=== PATIENT | male | born 1965 | race African-American/Black ===

== ENCOUNTER 2023-04-28 11:29 | Emergency (ER) | payer MEDICAID, SELFPAY ==
[2023-04-28 11:35] VITALS: BP 175/96; PULSE 64; RESP 16; TEMP 37; O2SAT 98; BMI 21.4
--- NOTE | 2023-04-28 13:57 | ED_ITS ---
HPI - Dental/Oral 2 General: Chief complaint: Dental/Oral Stated complaint: tooth and jaw pain Time Seen by Provider: 04/28/23 11:35 Source: patient Mode of arrival: ambulatory Limitations: no limitations History of Present Illness: Patient is a nice 58-year-old male presents to ED today with a complaint of left lower dental pain over the past few days. He states he woke up this morning felt like the left side of his face was swollen. Patient admittedly has very poor oral hygiene and has had very poor previous dental care. He is able to eat and drink and articulate normally. No fevers. He is controlling saliva. Teeth map: 1. severely decayed teeth Onset (ago): day(s) Duration: constant Severity: moderate Relieving factors: nothing Exacerbating factors: chewing Context: history of dental caries and poor dental care Associated symptoms: Denies ear or mastoid pain, fever(s) or odynophagia Treatment prior to arrival: none Review of Systems 2 Const: Denies: fever(s), chills, body aches, fatigue or malaise ENMT: Reports: dental pain; Denies: throat pain, uvular edema, enlarged tonsils, odynophagia, hoarseness, swelling of lips/tongue, oral sores, bleeding gums or ear or mastoid pain Card: Denies: chest pain Resp: Denies: dyspnea GI: Denies: nausea or vomiting Musc: Denies: neck pain Skin/Breast: Denies: rash Neuro: Denies: headache(s) Physical Exam 2 Const: COMMON NORMALS: no acute distress, average body habitus, patient oriented x3, no limitations and alert HENMT: COMMON NORMALS: normocephalic and atraumatic HEAD & SCALP: n ormocephalic and atraumatic FACE & SINUS: sinuses nontender FACE & SINUS IMAGES: 1. very minimal facial swelling MOUTH: Normal oral and palatal mucosa present and lip normal TEETH & GINGIVA: Yes caries, Yes poor dentition and Yes other (every single tooth is severely decayed) THROAT: posterior oropharynx normal and tonsils normal; no uvular edema Eye: GENERAL EYE: appearance normal, both eyes and all related structures Neck/C-Spine: COMMON NORMALS: no lymphadenopathy GENERAL: Yes normal visual inspection, No anterior neck swelling and No submandibular swelling Resp: COMMON NORMALS: normal respiratory effort and clear to auscultation bilaterally AUSCULTATION: clear to auscultation bilaterally Cardio: COMMON NORMALS: regular rate and regular rhythm RATE: regular rate RHYTHM: regular rhythm Neuro: COMMON NORMALS: patient oriented x3 SENSORIUM/ORIENTATION: Yes alert Course 2 Vital Signs: Vital signs: Vital Signs Temperature 98.6 F 04/28/23 11:35 Pulse Rate 65 04/28/23 14:27 Respiratory Rate 16 04/28/23 11:35 Blood Pressure 178/97 04/28/23 14:27 Pulse Oximetry 98 04/28/23 14:27 Oxygen Delivery Me thod Room Air 04/28/23 11:35 MDM - Dental/Oral Medical Decision Making Patient will be placed on antibiotics. He states he has adult Medicaid and cannot afford to pay for a dentist [id number]. He was provided [facility] here in [facility] which does except adult Medicaid. He was also given a list of dental resources as well. Return to ED precautions given. Differential Diagnosis Likely gingival abscess, dental caries, toothache and dental abscess Medical Records I reviewed the patient's medical records. No radiology studies performed this visit Discharge Plan Discharge Patient Disposition: Home Clinical Impression: Dental caries, Toothache Condition: Stable Prescriptions: New penicillin V potassium 500 mg tablet 500 mg PO Q8H 7 Days Qty: 21 0RF Discharge Orders: Discharge ED (Routine); Ordered 04/28/23 Ordered By: Yin Gonzales Patient Instructions: Toothache (ED) Activity Restrictions/Additional Instructions: As we discussed there is a clinic in [place] that accepts adult Medicaid. Name of the clinic is [facility]. Clinic location/address is [address] [place] [address]. Phone number is . You have also been giving a list of other dental resources/clinics. Coding Level of Care Code ED High School Foreign Language Teacher for Musa Haskins
[2023-04-28 14:27] VITALS: BP 178/97; PULSE 65; O2SAT 98
== END 2023-04-28 14:25 | disposition home or self-care (01) ==
PROVIDERS: Emergency Provider Physician Assistant
DX: K02.9 Dental caries, unspecified (principal); K08.89 Other specified disorders of teeth and supporting structures
CPT/HCPCS: 99283

== ENCOUNTER 2023-12-26 10:51 | Emergency (ER) | payer MEDICAID, SELFPAY ==
[2023-12-26 11:01] VITALS: BP 209/108; PULSE 71; RESP 15; TEMP 36.9; O2SAT 93; BMI 22.8
--- NOTE | 2023-12-26 13:27 | ED_ITS ---
HPI - Dental/Oral 2 General: Chief complaint: Dental/Oral Stated complaint: Jaw infection Time Seen by Provider: 12/26/23 13:07 Source: patient Mode of arrival: ambulatory Limitations: no limitations History of Present Illness: Patient is a 58-year-old male who presents to ED today with a complaint of swelling to the left side of his face/jaw over the past several days. He states he has an infected tooth. He states all of his teeth are bad and need pulled. He did contact a dentist who said they would not be willing to do anything until infection is treated. Patient arrives in no acute distress. Blood pressure significantly elevated here. He states he has chronic hypertension and is out of his blood pressure medications. Unknown what his normal blood pressure is. It has been high on previous documentation here. He states he used to take lisinopril 10mg daily. MD Complaint: tooth pain Teeth map: 1. Onset (ago): day(s) Duration: constant Severity: moderate Relieving factors: nothing Exacerbating factors: nothing Context: poor dental care Associated symptoms: Reports other (facial swelling); Denies fever(s) Treatment prior to arrival: none Related Data Previous Rx's Medication Instructions Recorded lisinopril 10 mg tablet 10 mg PO DAILY #30 tabs 12/26/23 penicillin V potassium 500 mg 500 mg PO Q8H 7 days #21 tabs 12/26/23 tablet Allergies Allergy/AdvReac Type Severity Reaction Status Date / Time No Known Allergies Allergy Verified 12/26/23 11:01 Review of Systems 2 Const: Denies: fever(s), chills, body aches, fatigue or malaise Eyes: Denies: blurry vision ENMT: Reports: dental pain Card: Denies: chest pain Resp: Denies: dyspnea GI: Denies: abdominal pain Musc: Denies: neck pain Neuro: Denies: headache(s) Physical Exam 2 Const: COMMON NORMALS: no acute distress, average body habitus, patient oriented x3, no limitations, healthy appearing, alert and well nourished HENMT: TEETH & GINGIVA: Yes caries, Yes poor dentition and Yes other (every tooth is completely decayed down to base) TEETH & GINGIVA IMAGES: 1. gingival abscess-drained with purulent material expressed; extensive/wide spread dental decay THROAT: posterior oropharynx normal and tonsils normal OTHER: floor of mouth is soft/non-elevated Eye: GENERAL EYE: appearance normal, both eyes and all related structures Neck/C-Spine: COMMON NORMALS: no lymphadenopathy GENERAL: Yes normal visual inspection, No anterior neck swelling and No submandibular swelling Resp: COMMON NORMALS: normal respiratory effort and clear to auscultation bilaterally AUSCULTATION: clear to auscultation bilaterally Cardio: COMMON NORMALS: regular rate and regular rhythm RATE: regular rate RHYTHM: regular rhythm Extremity: GENERAL: Yes normal exam except as noted Neuro: COMMON NORMALS: patient oriented x3, moves all extremities, no focal motor deficits and no sensory deficits noted SENSORIUM/ORIENTATION: Yes alert Skin: COMMON NORMALS: no rashes or lesions noted GENERAL SKIN EXAM: no rashes or lesions noted Procedures Abscess I/D Site: oral (L lower gingival abscess) Side (if applicable): left Local Anesthetic: lidocaine 1% Amount of anesthesia used (mL): 1.0 Technique: incised with #11 blade Amount of fluid expressed (mL): 3.0 Packing used?: none Course 2 Vital Signs: Vital signs: Vital Signs Temperature 98.4 F 12/26/23 11:01 Pulse Rate 71 12/26/23 11:01 Respiratory Rate 15 12/26/23 11:01 Blood Pressure 209/108 12/26/23 11:01 Pulse Oximetry 93 12/26/23 11:01 [facility] - Dental/Oral Medical Decision Making Abscess drained uneventfully. He will be placed on antibiotics. Will place him back on his lisinopril. Recommend blood pressure log. No need to emergently lower bp as he is asymptomatic. Will have case management set him up with a primary care provider. Return to ED precautions given. Differential Diagnosis Likely dental abscess Medical Records I reviewed the patient's medical records. No radiology studies performed this visit Discharge Plan Discharge Patient Disposition: Home Clinical Impression: Dental caries, Gingival abscess Hypertension Qualifiers: Hypertension type: unspecified Qualified Code(s): I10 - Essential (primary) hypertension Condition: Stable Prescriptions: New penicillin V potassium 500 mg tablet 500 mg PO Q8H 7 Days Qty: 21 0RF lisinopril 10 mg tablet 10 mg PO DAILY Qty: 30 0RF Discharge Orders: Discharge ED (Routine); Ordered 12/26/23 Ordered By: Yin Gonzales Patient Instructions: Dental Caries (Cavities), Dental Abscess Activity Restrictions/Additional Instructions: As we discussed, sampler pickup your antibiotics and start them immediately. You need to return to the emergency department for any worsening swelling, swelling anterior neck, trouble swallowing/eating, trouble controlling your secretions/saliva, any shortness of breath or difficulty breathing, fevers, or any other concerns you may have. You need to follow-up with a dentist to soon as possible. I will have case management set you up with a primary care provider for further evaluation of your high blood pressure. I will place you back on your lisinopril. Please keep a blood pressure log to discuss with primary care during your follow-up. Coding Level of Care Code ED Supervisor Electric Motor Testing for Musa Haskins
[2023-12-26 14:20] VITALS: BP 233/137; PULSE 73; RESP 14; O2SAT 96
--- NOTE | 2023-12-29 08:38 | DCPLANNER ---
caitlin alberto care for er f/u
== END 2023-12-26 14:19 | disposition home or self-care (01) ==
PROVIDERS: Emergency Provider Physician Assistant
DX: K02.9 Dental caries, unspecified (principal); K05.20 Aggressive periodontitis, unspecified; I10 Essential (primary) hypertension
CPT/HCPCS: 41800; 99282

== ENCOUNTER 2024-01-11 13:51 | Emergency (ER) | payer MEDICAID, SELFPAY ==
[2024-01-11 14:14] VITALS: BP 149/84; PULSE 73; RESP 17; TEMP 36.8; O2SAT 99; BMI 22.4
--- NOTE | 2024-01-11 14:26 | ED_ITS ---
HPI - Dental/Oral General: Chief complaint: Dental/Oral Stated complaint: tooth pain Time Seen by Provider: 01/11/24 14:25 History of Present Illness: 58-year-old male patient comes in today with a dental abscess to the left lower jaw. Patient was seen last week on 28 December for similar complaints. Patient had taken antibiotics for 2 to 3 days until the abscess resolved and then started the antibiotic up again today when the abscess started coming back. Patient has 2 tablets left of his antibiotic. Related Data Previous Rx's Medication Instructions Recorded lisinopril 10 mg tablet 10 mg PO DAILY #30 tabs 12/26/23 penicillin V potassium 500 mg 500 mg PO Q8H 10 days #30 tabs 01/11/24 tablet Allergies Allergy/AdvReac Type Severity Reaction Status Date / Time No Known Allergies Allergy Verified 12/26/23 11:01 Review of Systems General: Reports: 10 or more systems reviewed and unremarkable except in HPI and below ENMT: Reports: mouth pain Physical Exam Const: COMMON NORMALS: alert HENMT: TEETH & GINGIVA: Yes poor dentition Neck/C-Spine: COMMON NORMALS: full ROM Resp: COMMON NORMALS: normal respiratory effort Cardio: COMMON NORMALS: regular rate RATE: regular rate Back/Pelvis: COMMON NORMALS: thoracic and lumbar spine normal to inspection Extremity: COMMON NORMALS: normal to inspection Neuro: SENSORIUM/ORIENTATION: Yes alert Skin: COMMON NORMALS: turgor normal GENERAL SKIN EXAM: turgor normal Course Vital Signs: Vital signs: Vital Signs Temperature 98.2 F 01/11/24 14:14 Pulse Rate 73 01/11/24 14:14 Respiratory Rate 17 01/11/24 14:14 Blood Pressure 149/84 01/11/24 14:14 Pulse Oximetry 99 01/11/24 14:14 Oxygen Delivery Me thod Room Air 01/11/24 14:14 [facility] - Dental/Oral Medical Decision Making 58-year-old male patient comes in today with a dental abscess. On exam patient has a bulla to the gingiva of the left lower jaw at the first premolar. Patient has decay of the teeth to the gumline. Differential diagnosis includes dental abscess, dental caries, dental pain. Patient was given a refill on his Pen-Vee K 500 mg 3 times a day for 30 tablets. Patient reports understanding of care plan need for follow-up with dentist. No radiology studies performed this visit Discharge Plan Discharge Patient Disposition: Home Clinical Impression: Dental abscess Condition: Stable Prescriptions: New penicillin V potassium 500 mg tablet 500 mg PO Q8H 10 Days Qty: 30 0RF No Action lisinopril 10 mg tablet 10 mg PO DAILY Qty: 30 0RF Discharge Orders: Discharge ED (Routine); Ordered 01/11/24 Ordered By: Montez Carpenter Discharge Diet: Usual diet Discharge Activity: Increase activity as tolerated Patient Instructions: Dental Abscess (ED) Activity Restrictions/Additional Instructions: Follow-up with primary care as needed. Follow-up with dentist for definitive care. Coding Level of Care Code ED Dynamite Reclaimer for Musa Haskins
[2024-01-11 14:44] VITALS: BP 149/84; PULSE 73; O2SAT 99
== END 2024-01-11 14:45 | disposition home or self-care (01) ==
PROVIDERS: Emergency Provider Nurse Practitioner Family
DX: K04.7 Periapical abscess without sinus (principal)
CPT/HCPCS: 99283

== ENCOUNTER 2024-04-05 06:37 | Emergency (ER) | payer MEDICAID, SELFPAY ==
[2024-04-05 07:10] VITALS: BP 194/98; PULSE 83; RESP 18; TEMP 36.7; O2SAT 96; BMI 22.6
[2024-04-05 07:14] VITALS: BP 158/95; PULSE 72; RESP 16; O2SAT 96
--- NOTE | 2024-04-05 07:15 | ED_ITS ---
HPI - Male Genitourinary 2 General: Chief complaint: Urogenital-Male Stated complaint: peeing blood Time Seen by Provider: 04/05/24 06:46 History of Present Illness: 59-year-old [facility]. Patient's not had problems with hematuria in the past no history of any kidney stones recurrent bladder infections no history of pyelonephritis bladder cancer or prostate issues. He began having painless hematuria overnight. He woke up to go to the bathroom and noticed that he has significant amount of blood can persisted through this morning. He does not feel like he has difficulty with voiding he has not had any dysuria urgency or frequency has not any difficulty with initiating urine stream or emptying his bladder. He has no abdominal or flank pain no fever sweats or chills. No recent trauma. Associated symptoms: Reports hematuria; Deny dysuria Related Data Home Medications Medication Instructions Recorded Confirmed atorvastatin 10 mg tablet 10 mg PO DAILY 04/05/24 04/05/24 baclofen 10 mg tablet 5 - 10 mg PO BID 04/05/24 04/05/24 insulin glargine 100 unit/mL (3 32 unit SUBCUT BID 04/05/24 04/05/24 mL) subcutaneous pen (Lantus Solostar U-100 Insulin) meloxicam 7.5 mg tablet 7.5 mg PO BID 04/05/24 04/05/24 metoprolol tartrate 50 mg tablet 50 mg PO DAILY 04/05/24 04/05/24 Previous Rx's Medication Instructions Recorded lisinopril 10 mg tablet 10 mg PO DAILY #30 tabs 12/26/23 ciprofloxacin HCl 500 mg tablet 500 mg PO BID #14 tabs 04/05/24 (Cipro) tamsulosin 0.4 mg capsule 0.4 mg PO DAILY #30 caps 04/05/24 Allergies Allergy/AdvReac Type Severity Reaction Status Date / Time No Known Allergies Allergy Verified 12/26/23 11:01 Review of Systems 2 Const: Denies: fever(s) or chills Card: Denies: chest pain Resp: Denies: dyspnea GI: Denies: abdominal pain : Reports: hematuria; Denies: dysuria, urinary frequency or urinary urgency Musc: Denies: neck pain or back pain Skin/Breast: Denies: rash PFSH ED 2 PFSH: Medical History Hyperlipidemia Diabetes Physical Exam 2 Const: COMMON NORMALS: no acute distress GENERAL APPEARANCE: cooperative and comfortable ORIENTATION/CONSCIOUSNESS: Yes awake, Yes oriented to person, Yes oriented to place and Yes oriented to time HENMT: COMMON NORMALS: normocephalic, atraumatic and hearing grossly normal bilaterally HEAD & SCALP: normocephalic and atraumatic Resp: COMMON NORMALS: normal respiratory effort, No retractions, No use of accessory muscles and clear to auscultation bilaterally AUSCULTATION: clear to auscultation bilaterally Cardio: COMMON NORMALS: regular rate, regular rhythm and No murmurs present (Cardio) RATE: regular rate RHYTHM: regular rhythm GI: COMMON NORMALS: Soft to palpation and No hepatosplenomegaly present A USCULTATION: Yes normoactive bowel sounds PALPATION: Yes Soft to palpation, No Tenderness to palpation present (GI), No Guarding due to palpation present (GI) and Yes No hepatosplenomegaly present Extremity: COMMON NORMALS: normal to inspection, capillary refill normal, no clubbing, cyanosis or edema, no calf tenderness and no pedal edema Neuro: SENSORIUM/ORIENTATION: Yes oriented to person, Yes oriented to place and Yes oriented to time Skin: COMMON NORMALS: no rashes or lesions noted GENERAL SKIN EXAM: no rashes or lesions noted Course 2 Vital Signs: Vital signs: Vital Signs Temperature 98.1 F 04/05/24 07:10 Pulse Rate 68 04/05/24 10:46 Respiratory Rate 16 04/05/24 07:14 Blood Pressure 138/80 04/05/24 10:46 Pulse Oximetry 98 04/05/24 10:46 Oxygen Delivery Me thod Room Air 04/05/24 07:10 MDM - Male Medical Decision Making Significant amount of hematuria. Renal function is normal. On CT there is question of bladder masses. Will cover with antibiotics Cipro 500 twice daily for 7 days. Refer to urology for further evaluation will need cystoscopy at some point. Reviewed findings with the patient expressed the importance of following up with urology Lab Data 04/05/24 07:17 04/05/24 07:17 Radiology Impressions Abdomen/Pelvis CT 04/05/24 07:22 IMPRESSION: 1. Intraluminal urinary bladder masses of increased attenuation on this unenhanced exam are identified. The largest measures 3.3 x 2.8 x 2.5 cm. This high density mass is in the posterior RIGHT urinary bladder and partially exophytic which may be a bladder diverticulum filled with debris and/or neoplasm. There is an additional high density mass measuring 1.1 x 1.3 x 1.3 cm in the posterior bladder. Recommend cystoscopy for evaluation of both of these masses. 2. No renal obstruction. No renal calcifications. 3. Normal appendix. 4. Moderate constipation with diffuse mild diverticular disease. No acute diverticulitis. Laboratory Results WBC 5.36 10^3/uL (3.29-11.43) 04/05/24 07:17 RBC 5.28 10^6/uL (3.85-5.65) 04/05/24 07:17 Hgb 15.70 g/dL (11.27-16.99) 04/05/24 07:17 Hct 45.9 % (37-53) 04/05/24 07:17 MCV 86.9 fl (82-101) 04/05/24 07:17 MCH 29.7 pg (27-33) 04/05/24 07:17 MCHC 34.2 g/dL (30-55) 04/05/24 07:17 RDW 12.1 % (12.1-15.1) 04/05/24 07:17 Plt Count 267 10^3/cmm (157-399) 04/05/24 07:17 MPV 9.2 fL (7.4-10.4) 04/05/24 07:17 Neut % (Auto) 53.6 % 04/05/24 07:17 Lymph % (Auto) 37.7 % 04/05/24 07:17 Dolores % (Auto) 6.0 % 04/05/24 07:17 Eos % (Auto) 1.7 % 04/05/24 07:17 Baso % (Auto) 0.6 % 04/05/24 07:17 Neut # (Auto) 2.88 10^3/uL (1.8-7.7) 04/05/24 07:17 Lymph # (Auto) 2.0 10^3/uL (0.8-4.8) 04/05/24 07:17 Dolores # (Auto) 0.3 10^3/uL (0.2-0.9) 04/05/24 07:17 Eos # (Auto) 0.1 10^3/uL (0.0-0.8) 04/05/24 07:17 Baso # (Auto) 0.0 10^3/uL (0.0-0.1) 04/05/24 07:17 Nucleated RBC % (auto) 0 % 04/05/24 07:17 Nucleated RBCs # 0.0 /100WBC 04/05/24 07:17 PT 13.40 SECONDS (12.1-14.9) 04/05/24 07:17 INR 0.99 (0.8-1.2) 04/05/24 07:17 APTT 27.6 SECONDS (23.9-36.7) 04/05/24 07:17 Sodium 134 mmol/L (136-145) L 04/05/24 07:17 Potassium 4.3 mmol/L (3.5-5.1) 04/05/24 07:17 Chloride 98 mmol/L (98-107) 04/05/24 07:17 Carbon Dioxide 28 mmol/L (22-29) 04/05/24 07:17 Anion Gap 12.3 (5-19) 04/05/24 07:17 BUN 15 mg/dL (8-23) 04/05/24 07:17 Creatinine 1.0 mg/dL (0.7-1.2) 04/05/24 07:17 GFR Calculation 92.2 mL/min (90-130) 04/05/24 07:17 Glucose 343 mg/dL (65-115) H 04/05/24 07:17 Calculated Osmolality 292 mOsm/kg (285-295) 04/05/24 07:17 Calcium 9.5 mg/dL (8.5-10.5) 04/05/24 07:17 Total Bilirubin 0.3 mg/dL (0.15-1.2) 04/05/24 07:17 AST 23 U/L (0-40) 04/05/24 07:17 ALT 16 U/L (0-41) 04/05/24 07:17 Alkaline Phosphatase 151 U/L (40-130) H 04/05/24 07:17 Total Protein 7.6 g/dL (6.6-8.7) 04/05/24 07:17 Albumin 4.2 g/dL (3.5-5.2) 04/05/24 07:17 Globulin 3.4 g/dL (1.3-4.6) 04/05/24 07:17 Urine Color Red (Yellow) A 04/05/24 07:07 Urine Appearance Cloudy (CLEAR) A 04/05/24 07:07 Urine pH 5.5 (5-7) 04/05/24 07:07 Ur Specific Adah 1.010 (1.005-1.030) 04/05/24 07:07 Urine Protein 3+ (Negative) A 04/05/24 07:07 Urine Glucose (UA) 2+ (Normal) H 04/05/24 07:07 Urine Ketones Negative (Negative) 04/05/24 07:07 Urine Blood 3+ (Negative) A 04/05/24 07:07 Urine Nitrate Positive (Negative) A 04/05/24 07:07 Urine Bilirubin 2+ (Negative) H 04/05/24 07:07 Urine Urobilinogen 0.2 mg/dL (Negative) 04/05/24 07:07 Ur Leukocyte Esterase 3+ (Negative) A 04/05/24 07:07 Urine RBC >100 /hpf (0-2) H 04/05/24 07:07 Urine WBC 51-100 /hpf (0-5) H 04/05/24 07:07 Ur Squamous Epith Cells 0-5 /hpf (0-5) 04/05/24 07:07 Amorphous Sediment Not Reportable 04/05/24 07:07 Urine Bacteria None seen /hpf (NONE) 04/05/24 07:07 Hyaline Casts 0.81 /lpf 04/05/24 07:07 All radiology interpretation(s) finalized by discharge Discharge Plan Discharge Patient Disposition: Home Clinical Impression: Bladder mass, Cystitis Condition: Stable Prescriptions: New ciprofloxacin HCl [Cipro] 500 mg tablet 500 mg PO BID Qty: 14 0RF tamsulosin 0.4 mg capsule 0.4 mg PO DAILY Qty: 30 0RF No Action lisinopril 10 mg tablet 10 mg PO DAILY Qty: 30 0RF atorvastatin 10 mg tablet 10 mg PO DAILY meloxicam 7.5 mg tablet 7.5 mg PO BID baclofen 10 mg tablet 5 - 10 mg PO BID metoprolol tartrate 50 mg tablet 50 mg PO DAILY insulin glargine [Lantus Solostar U-100 Insulin] 100 unit/mL (3 mL) insulin pen 32 unit SUBCUT BID Discharge Orders: Discharge ED (Routine); Ordered 04/05/24 Ordered By: Adria Apodaca Discharge Diet: Usual diet Discharge Activity: Increase activity as tolerated Patient Instructions: Opioid Safety, Pain Management Activity Restrictions/Additional Instructions: Thank you for choosing [facility] for your healthcare needs today. It is very important that you follow up as instructed or that you return to the Emergency Department should you have concerns or if your condition changes or worsens in any way. You were seen in the emergency room with complaints of blood in the urine. The urinalysis shows a mild bladder infection a large amount of red blood cells. You do have masses within the bladder noted on the CT scan. This will require further workup with a urologist. Recommend that we discharge you home with oral antibiotics 1 pill twice a day for 7 days additionally case management will refer you to a urologist for further evaluation for these bladder masses. If you are unable to empty your bladder or start urine stream return to the emergency room. Coding Level of Care Code ED Mattress Filling Machine Tender for Musa Haskins
--- NOTE | 2024-04-05 07:22 | CT_ITS ---
WS: [id number] CT ABDOMEN AND PELVIS NONCONTRAST HISTORY: flank pain TECHNIQUE: Imaging performed through the abdomen and pelvis. Coronal and sagittal reformats are submi tted. All CT scans at [facility] use at least one of these dose optimization techniques: auto mated exposure control; mA and/or kV adjustment per patient size (includes targeted exams where dose is matched to clinical indication); or iterative reconstruction. DLP: 464.34 mGy.cm COMPARISON: None available. Lower thorax: Bilateral lower lobe granulomas. Heart size is slightly enlarged. Small hiatal hernia. Liver: Normal size liver. No mass or bile duct dilatation. Gallbladder: Normal gallbladder. No pericholecystic fluid or cholelithiasis. No gallbladder wall thic kening. Pancreas: Limited visualization and evaluation without IV contrast. Spleen: Normal. Adrenal glands: Normal. No mass. Right kidney: Mild perinephric stranding. No mass or obstruction. No renal calcification. Left kidney: Mild perinephric stranding no mass or obstruction. No renal calcification. Aorta: Normal abdominal aorta, no aneurysm or atherosclerosis. No free fluid, intraperitoneal air or significant lymphadenopathy. GI tract: Normal stomach. No small bowel obstruction. Normal appendix. Moderate diffuse constipation and diffuse mild diverticulosis. No acute diverticulitis or obstruction. Abdominal wall: Small umbilical hernia contains fat only. Pelvis: Well-distended urinary bladder. Intraluminal masses within the urinary bladder. There is a ma ss of increased density in the posterior RIGHT lateral urinary bladder wall with a component extendin g intraluminal. The entire collection measures 3.3 x 2.8 x 2.5 cm. This may be bladder mass or sedime ntation within a diverticulum. This will need to be further evaluated as it is suspicious for neoplas m. The ureter is closely associated with the mass. There is an additional high density mass in the bl adder posterior and central measuring 1.1 x 1.3 x 1.3 cm. Mild bladder wall thickening is diffuse. Osseous structures: Schmorl's nodes defects in the spine. There are a few small sclerotic and lytic c hanges within the lumbar spine and lower thoracic spine which are indeterminate. CT/CT kidney stone [id number] IMPRESSION: 1. Intraluminal urinary bladder masses of increased attenuation on this unenha nced exam are identified. The largest measures 3.3 x 2.8 x 2.5 cm. This high de nsity mass is in the posterior RIGHT urinary bladder and partially exophytic wh ich may be a bladder diverticulum filled with debris and/or neoplasm. There is an additional high density mass measuring 1.1 x 1.3 x 1.3 cm in the posterior b ladder. Recommend cystoscopy for evaluation of both of these masses. 2. No renal obstruction. No renal calcifications. 3. Normal appendix. 4. Moderate constipation with diffuse mild diverticular disease. No acute dive rticulitis.
[2024-04-05 07:28] LABS: Basophils % 0.6 %; Eosinophils # 0.1 10^3/uL (0.0-0.8); Eosinophils % 1.7 %; Hematocrit 45.9 % (37-53); Lymphocytes % 37.7 %; Mean Corpuscular HGB Conc 34.2 g/dL (30-55); Mean Corpuscular Hemoglobin 29.7 pg (27-33); Mean Corpuscular Volume 86.9 fl (82-101); Mean Platelet Volume 9.2 fL (7.4-10.4); Monocytes # 0.3 10^3/uL (0.2-0.9); Neutrophils # 2.88 10^3/uL (1.8-7.7); Neutrophils % 53.6 %; Nucleated Red Blood Cells % 0 %; Platelet Count 267 10^3/cmm (157-399); Red Blood Count 5.28 10^6/uL (3.85-5.65); Red Cell Distribution Width 12.1 % (12.1-15.1); White Blood Count 5.36 10^3/uL (3.29-11.43)
[2024-04-05] MEDS: lisinopril 10 mg Tablet PO (07:37)
[2024-04-05 07:43] LABS: Alanine Aminotransferase 16 U/L (0-41); Albumin Level 4.2 g/dL (3.5-5.2); Alkaline Phosphatase 151 U/L (40-130); Anion Gap 12.3 (5-19); Aspartate Amino Transferase 23 U/L (0-40); Blood Urea Nitrogen 15 mg/dL (8-23); Calcium 9.5 mg/dL (8.5-10.5); Carbon Dioxide 28 mmol/L (22-29); Chloride 98 mmol/L (98-107); Creatinine Clr Calc Pharmacy 77.9778; Globulin 3.4 g/dL (1.3-4.6); Glomerular Filtration Rate 92.2 mL/min (90-130); Glucose 343 mg/dL (65-115); Osmolality Calculated 292 mOsm/kg (285-295); Potassium 4.3 mmol/L (3.5-5.1); Sodium 134 mmol/L (136-145); Total Bilirubin 0.3 mg/dL (0.15-1.2); Total Protein 7.6 g/dL (6.6-8.7)
[2024-04-05 07:45] LABS: INR 0.99 (0.8-1.2)
[2024-04-05 07:46] LABS: Partial Thromboplastin Time 27.6 SECONDS (23.9-36.7)
[2024-04-05 08:14] VITALS: BP 148/90; PULSE 65; O2SAT 94
[2024-04-05 08:23] LABS: Bilirubin Urine 2+ (Negative); Blood Urine 3+ (Negative); Glucose Urine UA 2+ (Normal); Ketones Urine Negative (Negative); Leukocyte Esterase Urine 3+ (Negative); Nitrate Urine Positive (Negative); Protein Urine 3+ (Negative); Urine Appearance Cloudy (CLEAR); Urobilinogen Urine 0.2 mg/dL (Negative); pH Urine 5.5 (5-7)
[2024-04-05 08:28] LABS: Add Urine Microscopic? YES; Bacteria Urine None Seen /hpf; Hyaline Casts Urine 0.81 /lpf; RBC Urine >100 /hpf (0-2); Squamous Epithelial Cell Urine 0-5 /hpf (0-5); WBC Urine 51-100 /hpf (0-5)
[2024-04-05 08:30] LABS: Urine Color Red (Yellow)
[2024-04-05 08:32] LABS: Add Urine Culture? Yes; UA Slide Review UA Slide Review Perf
[2024-04-05 09:00] VITALS: BP 138/85; O2SAT 95
[2024-04-05 10:00] VITALS: BP 145/77
[2024-04-05 10:46] VITALS: BP 138/80; PULSE 68; O2SAT 98
--- NOTE | 2024-04-07 10:07 | DCPLANNER ---
urology referral sent to [facility]
== END 2024-04-05 10:47 | disposition home or self-care (01) ==
PROVIDERS: Emergency Provider Family Medicine
DX: N32.89 Other specified disorders of bladder (principal); N30.91 Cystitis, unspecified with hematuria; Z79.4 Long term (current) use of insulin; E11.9 Type 2 diabetes mellitus without complications; E78.5 Hyperlipidemia, unspecified
CPT/HCPCS: 36415; 74176; 80053; 81001; 85025; 85610; 85730; 87086; 99284

== ENCOUNTER 2024-05-08 10:23 | Emergency (ER) | payer MEDICAID, SELFPAY ==
[2024-05-08 10:41] VITALS: BP 177/100; PULSE 59; RESP 17; TEMP 36.8; O2SAT 97; BMI 22.4
--- NOTE | 2024-05-08 12:05 | ED_ITS ---
HPI - Dental/Oral 2 General: Chief complaint: Dental/Oral Stated complaint: Swelling in right jaw, tooth pain Time Seen by Provider: 05/08/24 11:44 Source: patient History of Present Illness: Patient is a very pleasant nontoxic 59-year-old gentleman who presents with complaint of right lower dental pain and mild jaw swelling. He states he had a dental abscess on the left side several months ago which was resolved with antibiotics. He has known poor dentition and reports having some increasing pain over on the right lower jaw the last couple of days. No fevers. MD Complaint: tooth pain Duration: constant Severity: moderate Associated symptoms: Denies fever(s) Related Data Home Medications Medication Instructions Recorded Confirmed atorvastatin 10 mg tablet 10 mg PO DAILY 04/05/24 04/05/24 baclofen 10 mg tablet 5 - 10 mg PO BID 04/05/24 04/05/24 insulin glargine 100 unit/mL (3 32 unit SUBCUT BID 04/05/24 04/05/24 mL) subcutaneous pen (Lantus Solostar U-100 Insulin) meloxicam 7.5 mg tablet 7.5 mg PO BID 04/05/24 04/05/24 metoprolol tartrate 50 mg tablet 50 mg PO DAILY 04/05/24 04/05/24 Previous Rx's Medication Instructions Recorded lisinopril 10 mg tablet 10 mg PO DAILY #30 tabs 12/26/23 ciprofloxacin HCl 500 mg tablet 500 mg PO BID #14 tabs 04/05/24 (Cipro) tamsulosin 0.4 mg capsule 0.4 mg PO DAILY #30 caps 04/05/24 amoxicillin 875 mg tablet 875 mg PO BID #20 tabs 05/08/24 Allergies Allergy/AdvReac Type Severity Reaction Status Date / Time No Known Allergies Allergy Verified 12/26/23 11:01 Review of Systems 2 Const: Denies: fever(s) or chills ENMT: Reports: mouth pain; Denies: throat pain Card: Denies: chest pain Resp: Denies: dyspnea PFSH ED 2 PFSH: Medical History Hyperlipidemia Diabetes Physical Exam 2 Const: COMMON NORMALS: no acute distress, average body habitus, alert and well nourished GENERAL APPEARANCE: cooperative ORIENTATION/CONSCIOUSNESS: Yes awake OTHER: Well-appearing 59-year-old -[place] gentleman in no acute distress HENMT: COMMON NORMALS: normocephalic and atraumatic; dentition not normal HEAD & SCALP: normocephalic and atraumatic TEETH & GINGIVA IMAGES: 1. Poor dentition with multiple dental caries and decayed dentition down to the gingiva. Reproducible pain around 27 and 26. No gingival fluctuance or drainable fluid collection. No trismus. OTHER: Oropharynx otherwise clear and moist. Poor dentition with multiple dental caries. No submandibular swelling or tenderness. Eye: COMMON NORMALS: conjunctivae normal CONJUNCTIVA: Yes conjunctivae normal Neck/C-Spine: GENERAL: Yes normal visual inspection Resp: COMMON NORMALS: normal respiratory effort, No retractions and No use of accessory muscles Cardio: COMMON NORMALS: regular rhythm and Peripheral pulses 2+ throughout RHYTHM: regular rhythm PERIPHERAL PULSES: Peripheral pulses 2+ throughout GI: COMMON NORMALS: Soft to palpation and non-tender PALPATION: Yes Soft to palpation Extremity: COMMON NORMALS: full ROM and no pedal edema Neuro: COMMON NORMALS: no focal motor deficits SENSORIUM/ORIENTATION: Yes alert Skin: COMMON NORMALS: no rashes or lesions noted GENERAL SKIN EXAM: no rashes or lesions noted Course 2 Vital Signs: Vital signs: Vital Signs Temperature 98.2 F 05/08/24 10:41 Pulse Rate 59 L 05/08/24 10:41 Respiratory Rate 17 05/08/24 10:41 Blood Pressure 177/100 05/08/24 10:41 Pulse Oximetry 97 05/08/24 10:41 Oxygen Delivery Me thod Room Air 05/08/24 10:41 MDM - Dental/Oral Medical Decision Making Well-appearing 59-year-old -[place] gentleman with a dental abscess and mild right lower gingival and jaw swelling. No drainable fluid collection noted on exam. No trismus. Patient will be prescribed amoxicillin and recommended to follow-up with a dentist next week. Return precautions were provided. Differential Diagnosis Likely gingival abscess, dental caries, toothache and dental abscess No radiology studies performed this visit Discharge Plan Discharge Patient Disposition: Home Clinical Impression: Dental abscess Condition: Stable Prescriptions: New amoxicillin 875 mg tablet 875 mg PO BID Qty: 20 0RF No Action lisinopril 10 mg tablet 10 mg PO DAILY Qty: 30 0RF atorvastatin 10 mg tablet 10 mg PO DAILY meloxicam 7.5 mg tablet 7.5 mg PO BID baclofen 10 mg tablet 5 - 10 mg PO BID metoprolol tartrate 50 mg tablet 50 mg PO DAILY insulin glargine [Lantus Solostar U-100 Insulin] 100 unit/mL (3 mL) insulin pen 32 unit SUBCUT BID ciprofloxacin HCl [Cipro] 500 mg tablet 500 mg PO BID Qty: 14 0RF tamsulosin 0.4 mg capsule 0.4 mg PO DAILY Qty: 30 0RF Discharge Orders: Discharge ED (Routine); Ordered 05/08/24 Ordered By: Jarad Dudley Patient Instructions: Opioid Safety, Pain Management Activity Restrictions/Additional Instructions: Take medication as directed. Follow-up with a dentist for recheck next week. Return to the ER for any new or worsening symptoms or any other concerns. 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
== END 2024-05-08 12:17 | disposition home or self-care (01) ==
PROVIDERS: Emergency Provider Student in an Organized Health Care Education/Training Program
DX: K04.7 Periapical abscess without sinus (principal); E78.5 Hyperlipidemia, unspecified; E11.9 Type 2 diabetes mellitus without complications
CPT/HCPCS: 99283

== ENCOUNTER 2024-05-19 07:01 | Emergency (ER) | payer MEDICAID, SELFPAY ==
[2024-05-19 07:15] VITALS: BP 181/115; PULSE 79; RESP 16; TEMP 36.8; O2SAT 98; BMI 23.0
--- NOTE | 2024-05-19 07:20 | W.ED.EXTPRO ---
HPI - Extremity Problem General: Chief complaint: Extremity Problem,Nontraumatic Stated complaint: R leg swollen, painful Time Seen by Provider: 05/19/24 07:20 History of Present Illness: 5-year-old male with history of diabetes who presents to the emergency room with pain in his anterior right thigh. He says been going for about 2 days. He said he been having some swelling to his right knee. On exam I do not see any significant effusion. No redness. No swelling or warmth of the thigh. Thinks he might of bit bit by spider. He is complaining of some numbness in his feet. Thinks this may be some early diabetic neuropathy. No fevers. No cough. No nausea or vomiting. Related Data Home Medications ?Medication ?Instructions ?Recorded ?Confirmed atorvastatin 10 mg tablet 10 mg PO DAILY 04/05/24 05/19/24 baclofen 10 mg tablet 5 - 10 mg PO BID 04/05/24 05/19/24 insulin glargine 100 unit/mL (3 32 unit SUBCUT BID 04/05/24 05/19/24 mL) subcutaneous pen (Lantus Solostar U-100 Insulin) meloxicam 7.5 mg tablet 7.5 mg PO BID 04/05/24 05/19/24 metoprolol tartrate 50 mg tablet 50 mg PO DAILY 04/05/24 05/19/24 Previous Rx's ?Medication ?Instructions ?Recorded lisinopril 10 mg tablet 10 mg PO DAILY #30 tabs 12/26/23 tamsulosin 0.4 mg capsule 0.4 mg PO DAILY #30 caps 04/05/24 amoxicillin 875 mg tablet 875 mg PO BID #20 tabs 05/08/24 diclofenac sodium 50 mg 50 mg PO BID PRN pain #14 tabs 05/19/24 tablet,delayed release Allergies Allergy/AdvReac Type Severity Reaction Status Date / Time No Known Allergies Allergy Verified 12/26/23 11:01 Review of Systems Narrative: Constitutional symptoms: Negative except as documented in HPI. Skin symptoms: Negative except as documented in HPI. Eye symptoms: Negative except as documented in HPI. ENMT symptoms: Negative except as documented in HPI. Respiratory symptoms: Negative except as documented in HPI. Cardiovascular symptoms: Negative except as documented in HPI. Gastrointestinal symptoms: Negative except as documented in HPI. Genitourinary symptoms: Negative except as documented in HPI. Musculoskeletal symptoms: Negative except as documented in HPI. Neurologic symptoms: Negative except as documented in HPI. Psychiatric symptoms: Negative except as documented in HPI. Endocrine symptoms: Negative except as documented in HPI. PFSH ED PFSH: Medical History Hyperlipidemia Diabetes Physical Exam Narrative: EXAM NARRATIVE: General: Alert, no acute distress. Skin: warm and dry Head: Normocephalic Neck: Trachea midline Eye: Extraocular movements are intact. Ears, nose, mouth and throat: Oral mucosa moist Respiratory: Respirations are non-labored Musculoskeletal: Normal ROM, no significant knee effusion. No swelling of the thigh. No redness. No warmth. Neurological: Alert and oriented, No focal neurological deficit observed. Psychiatric: Cooperative, appropriate mood & affect. Course Vital Signs: Vital signs: Vital Signs Temperature 98.2 F 05/19/24 07:15 Pulse Rate 67 05/19/24 07:46 Respiratory Rate 16 05/19/24 07:15 Blood Pressure 171/113 05/19/24 07:46 Pulse Oximetry 98 05/19/24 07:46 Oxygen Delivery Me thod Room Air 05/19/24 07:15 MDM - Extremity (Nontraumatic) Medical Decision Making Assessment and plan: Thigh pain - Discharged home - Discussed plan with patient. Answered any questions. - Evaluation and treatment of this problem were appropriate in the emergency setting. No radiology studies performed this visit Discharge Plan Discharge Patient Disposition: Home Clinical Impression: Leg pain Condition: Stable Prescriptions: New diclofenac sodium 50 mg tablet,delayed release (DR/EC) 50 mg PO BID PRN (Reason: pain) Qty: 14 0RF No Action lisinopril 10 mg tablet 10 mg PO DAILY Qty: 30 0RF atorvastatin 10 mg tablet 10 mg PO DAILY meloxicam 7.5 mg tablet 7.5 mg PO BID baclofen 10 mg tablet 5 - 10 mg PO BID metoprolol tartrate 50 mg tablet 50 mg PO DAILY insulin glargine [Lantus Solostar U-100 Insulin] 100 unit/mL (3 mL) insulin pen 32 unit SUBCUT BID tamsulosin 0.4 mg capsule 0.4 mg PO DAILY Qty: 30 0RF amoxicillin 875 mg tablet 875 mg PO BID Qty: 20 0RF Discharge Orders: Discharge ED (Routine); Ordered 05/19/24 Ordered By: Toña Garcia Discharge Diet: As Directed Discharge Activity: Resume usual activity Patient Instructions: Opioid Safety, Pain Management Activity Restrictions/Additional Instructions: Thank you for choosing [facility] for your healthcare needs today. Please realize this is an emergency room and that we are providing you with a medical screening exam and this may not be complete and all inclusive of all the testing and or work up that you may need to determine your ailment or severity of your illness. You have been screened and evaluated and felt safe for discharge. Health conditions do change or evolve sometimes and as such it is important that you follow up with your Primary Doctor to be re checked, 3-5 days is a general good time frame for follow up. 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
[2024-05-19 07:46] VITALS: BP 171/113; PULSE 67; O2SAT 98
== END 2024-05-19 08:02 | disposition home or self-care (01) ==
PROVIDERS: Emergency Provider Emergency Medicine
DX: M79.604 Pain in right leg (principal); Z79.4 Long term (current) use of insulin; E11.9 Type 2 diabetes mellitus without complications; E78.5 Hyperlipidemia, unspecified
CPT/HCPCS: 99283